=== PATIENT | female | born 1955 | race Caucasian/White ===

== ENCOUNTER 2016-06-28 11:59 | Inpatient (IN) | payer OTHER ==
[2016-06-07 11:40] VITALS: BMI 34.0
--- NOTE | 2016-06-07 12:19 | PAT Medication Instructions ---
Service Date Jun 07, 2016. Current Home Medication List Albuterol (Ventolin), 2 PUFFS INH Q4-6HR PRN Buspirone Hcl (Buspar), 7.5 MG PO BID Cholecalciferol (Vitamin D3), 5,000 TAB PO QAM Levothyroxine Sodium (Levothyroxine Sodium), 1 TAB PO QAM Loratadine (Claritin), 10 MG PO PRN Magnesium Oxide (Mag-Ox), 400 MG PO QAM Meloxicam (Mobic), 7.5 MG PO BID Montelukast (Singulair *), 10 MG PO QAM Multivitamin (Multivitamin), 1 TAB PO QAM Pantoprazole (Protonix), 40 MG PO HS Medication Instructions For Your Scheduled Surgery - Check with surgeon for instructions: Meloxicam (Mobic), 7.5 MG PO BID - Hold the following medications the morning of surgery: Multivitamin (Multivitamin), 1 TAB PO QAM Montelukast (Singulair *), 10 MG PO QAM Magnesium Oxide (Mag-Ox), 400 MG PO QAM Loratadine (Claritin), 10 MG PO PRN Cholecalciferol (Vitamin D3), 5,000 TAB PO QAM - Take the following medications the morning of surgery with a sip of water: Levothyroxine Sodium (Levothyroxine Sodium), 1 TAB PO QAM Buspirone Hcl (Buspar), 7.5 MG PO BID Albuterol (Ventolin), 2 PUFFS INH Q4-6HR PRN (bring with hospital morning of surgery) - Take the following medications as scheduled the night before surgery: Pantoprazole (Protonix), 40 MG PO HS Loratadine (Claritin), 10 MG PO PRN Buspirone Hcl (Buspar), 7.5 MG PO BID Albuterol (Ventolin), 2 PUFFS INH Q4-6HR PRN If you have any questions please call us at [phone] (Denita Dillard PA-C) or [phone] or [phone]
[2016-06-07 12:54] LABS: BASO % 0.8 %; BASO ABS # 0.05 K/uL (0-0.2); COMPLETE YES; EOS % 3.9 %; HEMATOCRIT 41.7 % (37-47); IG% 0.2 %; LYMPH % 39.6 %; LYMPH ABS # 2.62 K/uL (1.2-3.4); MEAN CELL VOLUME 94.8 fL (80-100); MEAN CORPUSCULAR HGB CONC 33.8 g/dl (32-36); MEAN PLATELET VOLUME 9.7 fL (7.4-10.4); MONO % 8.5 %; PLATELET COUNT 289 K/uL (130-400); WHITE BLOOD COUNT 6.61 K/uL (4.8-10.8)
[2016-06-07 12:57] LABS: URINE APPEARANCE CLEAR (CLEAR); URINE BILIRUBIN NEG (NEG); URINE COLOR YELLOW; URINE NITRITE NEG (NEG); URINE PH 6.5 (4.5-7.5); URINE SPECIFIC GRAVITY 1.006 (1.000-1.030); UROBILINOGEN NEG (NEG)
[2016-06-07 12:58] LABS: MANUAL MICROSCOPIC REQUIRED? NO; REVIEW REQ? NO
[2016-06-07 13:06] LABS: PROTHROMBIN TIME (PATIENT) 10.7 SECONDS (9.0-12.0)
--- NOTE | 2016-06-07 13:09 | DIAGNOSTIC IMAGING REPORT ---
TWO VIEW CHEST CLINICAL HISTORY: Preoperative examination. FINDINGS: PA and lateral chest radiographs are compared to study dated 01/26/2011. The cardiomediastinal silhouette is unremarkable. The lungs and pleural spaces are clear. There is no pneumothorax. The skeletal structures are osteopenic. There is moderate S-shaped thoracolumbar scoliosis. Cholecystectomy clips are identified in the right upper quadrant. IMPRESSION: No active disease in the chest. Electronically signed by: Franck Machado M.D. 06/07/2016 1:08 PM Dictated Date/Time: 06/07/2016 1:07 PM
[2016-06-07 13:23] LABS: BUN/CREATININE RATIO 16.7 (10-20); CALCIUM 9.2 mg/dl (8.5-10.1); POTASSIUM 3.5 mmol/L (3.5-5.1)
--- NOTE | 2016-06-27 08:20 | HISTORY & PHYSICAL EXAMINATION ---
DATE OF ADMISSION: 06/28/2016 CHIEF COMPLAINT: Left knee pain. HISTORY OF PRESENT ILLNESS: Ms. Brink is a 61-year-old female with a multiple-year history of pain in her left knee. The patient rates her pain at an 8/10. She has pain with her daily activities. She has limited standing and walking tolerance. Pain is worse with weightbearing. The patient has had injections, home exercises and anti-inflammatories without relief. She has failed conservative treatment and is scheduled for left knee replacement. PAST MEDICAL HISTORY: Asthma, controlled; acid reflux; thyroid disease; and anxiety. She denies heart disease, diabetes or DVT. PAST SURGICAL HISTORY: Microdiskectomy, L4-L5; right total knee replacement; right carpal tunnel; multiple knee arthroscopies; appendectomy with ovarian cyst resection; laparoscopic cholecystectomy; ACL reconstruction on the right; LAVH in 1992; right ACL repair; and left and right bunionectomy with hammertoe repair. SOCIAL HISTORY: The patient denies alcohol or tobacco use. She lives in a 3-elli home. She is and works as an RN. FAMILY HISTORY: Negative for DVT. MEDICATIONS: Levothyroxine 0.5 mcg daily, Mobic 7.5 two tablets daily, Singulair 10 mg daily, BuSpar 7.5 mg b.i.d., Protonix 40 mg daily, Zantac 150 mg daily, Ventolin p.r.n., vitamin D3 at 5000 International Units daily, multivitamin 1 daily, mag 400 mg daily, and Claritin-D p.r.n. ALLERGIES: MORPHINE AND SULFA. REVIEW OF SYSTEMS: See HPI. Ten other systems reviewed, all negative. PHYSICAL EXAMINATION: VITAL SIGNS: Height 5 feet 0 inches, weight 176 pounds, and BMI is 34. GENERAL: This is a well-developed and well-nourished female who is alert and oriented x3. Mood and affect are appropriate. HEENT: Normocephalic and atraumatic. Mucous membranes are moist and intact. NECK: Supple without lymphadenopathy. HEART: Regular rate and rhythm without murmurs, rubs or gallops. LUNGS: Clear to auscultation without wheezes or rhonchi. ABDOMEN: Soft and nontender. Bowel sounds are equal and active. EXTREMITIES: No ecchymosis, redness or warmth. Thigh and calf are soft and nontender. She has neutral alignment. Range of motion is from 0-110 degrees with +3 laxity. She is neurovascularly intact with +5/5 strength. X-RAY EXAMINATION: AP and lateral views show joint space narrowing and osteophyte formation. IMPRESSION: Degenerative joint disease, left knee. PLAN: The patient will be admitted for a left total knee arthroplasty. We will plan on aspirin for DVT prophylaxis. The patient's PCP is Dr. Morgan Cisneros. She will probably do outpatient physical therapy upon discharge.
[~2016-06-28] VITALS: Ht 152.4 cm; Wt 79.9 kg
[2016-06-28] MEDS: TRANEXAMIC ACID INJ 1,000 MG in SODIUM CHLORIDE 0.9% 100ML 100 ML IV SCH ×2 (06:30→14:44)
[~2016-06-28 11:59] MED LIST: ACETAMINOPHEN 500 MG TAB PO SCH; ALBUAER2 INH; BUPIVACAINE 0.25% 30 ML VIAL ONE; BUPIVACAINE 0.5 % 5 MG/1 ML PF 10ML VIAL ONE; BUSP15TA70 PO; CEFAZOLIN 2000 MG/60 ML D5W 60 ML IV SCH; CHOL20007 PO; CLR10 PO; DEXAMETHASONE 4 MG TAB PO SCH; FAMOTIDINE 20 MG TAB PO SCH; GABAPENTIN 300 MG CAP PO SCH; LACTATED RINGER'S 1000ML 1,000 ML IV SCH; LACTATED RINGER'S 1000ML 500 ML IV ONE; LEVO50TA6 PO; MAGN400T6 PO; MELO7.5T5 PO; METOCLOPRAMIDE HCL 10 MG TAB PO SCH; MULT-506 PO; OXYCODONE HCL 10 MG TABCR (OXYCONTIN) PO SCH; PANT40TA PO; POLYMYXIN B SULFATE 100,000 UNITS in NSS 100ML IR SCH; ROPIVACAINE 5MG/ML 30 ML 150 MG, BUPIVACAINE/EPINEPHR 0.5% MPF 30 ML, KETOROLAC TROMETH... INFIL SCH; SNG10 PO; VANCOMYCIN INJ 400 MG in NSS 100ML IR SCH
[2016-06-28 12:33] VITALS: BP 157/77; PULSE 79; TEMP 36.7; O2SAT 98; Ht 152.4 cm; Wt 79.9 kg
[2016-06-28] MEDS ORDERED: MIDAZOLAM HCL 1 MG/ML 2ML VIAL ONE ×3 (13:57→15:35)
[2016-06-28] MEDS ORDERED: LACTATED RINGER'S 1000ML 1,000 ML IV PRN (14:20)
--- NOTE | 2016-06-28 14:24 | History & Physical Bridge Note ---
H&P Re-Evaluation Bridge Note: I have examined the patient, reviewed the History & Physical and in the interval since the performance of the History & Physical I have noted the following changes of clinical significance: No changes noted
[2016-06-28] MEDS ORDERED: ORTHO JOINT ANESTHETIC ONE (14:30)
[2016-06-28] MEDS ORDERED: BUPIVACAINE/EPINEPHRINE 0.25% 1:200,000 30 ML VIAL ONE (14:30)
[2016-06-28] MEDS ORDERED: FENTANYL CITRATE INJ 50 MCG/1 ML 2 ML VIAL IV PRN (14:30)
[2016-06-28] MEDS ORDERED: ONDANSETRON INJ 2 MG/ML 2 ML VIAL IV PRN ×2 (14:30→16:30)
[2016-06-28] MEDS ORDERED: BACITRACIN 50000 UNIT VIAL ONE (14:31)
[2016-06-28] MEDS ORDERED: POVIDONE-IODINE OP SOLN 30 ML BTL ONE (14:31)
[2016-06-28] MEDS ORDERED: FENTANYL CITRATE INJ 50 MCG/1 ML 2 ML VIAL ONE (14:33)
--- NOTE | 2016-06-28 16:28 | [facility] Post Operative Brief Note ---
Immediate Operative Summary Operative Date Jun 28, 2016. Pre-Operative Diagnosis DJD L KNEE Post-Operative Diagnosis SAME Procedure(s) Performed L TKA W PT MATCHED Surgeon [facility] Representative Surgeon(s) CONNIE Estimated Blood Loss 75 Findings DJD Complication(s) None Disposition Recovery Room / PACU
[2016-06-28] MEDS ORDERED: DiphenhydrAMINE HCL 50 MG/ML VIAL IV PRN (16:30)
[2016-06-28] MEDS ORDERED: MAGNESIUM HYDROXIDE SUSP 30 ML UDC PO PRN (16:30)
[2016-06-28] MEDS ORDERED: ZOLPIDEM TARTRATE 5 MG TAB PO PRN (16:30)
[2016-06-28] MEDS ORDERED: LIDOCAINE HCL 2% 2 ML VIAL (20MG/ML) ONE (16:30)
[2016-06-28] MEDS ORDERED: SOD PHOSPHATE/SOD BIPHOSPHATE ENEMA 132 ML BTL PR PRN (16:30)
[2016-06-28] MEDS ORDERED: TRAMADOL HCL 50 MG TAB PO PRN (16:30)
[2016-06-28] MEDS ORDERED: ALUMINUM/MAGNESIUM/SIMETH (MAALOX MAX) 30 ML UDC PO PRN (16:30)
[2016-06-28] MEDS ORDERED: BISACODYL 10 MG SUPP PR PRN (16:30)
[2016-06-28] MEDS ORDERED: PROPOFOL IV EMULSION 10 MG/ML 20 ML VIAL IV ONE (16:30)
[2016-06-28] MEDS ORDERED: PHENYLEPHRINE HCL INJ 10 MG/ML VIAL ONE (16:30)
[2016-06-28] MEDS ORDERED: METOCLOPRAMIDE HCL INJ 5 MG/ML 2 ML VIAL IV PRN (16:30)
--- NOTE | 2016-06-28 17:11 | OPERATIVE REPORT ---
DATE OF OPERATION: 06/28/2016 PREOPERATIVE DIAGNOSIS: Degenerative arthritis, left knee. POSTOPERATIVE DIAGNOSIS: Same. PROCEDURE: Left total knee patient matched implant. SURGEON: Twan Coon MD. SALES AND MARKETING INTERN: ADRIA Maharaj. ANESTHESIA: Spinal. BLOOD LOSS: 75 mL. REPLACEMENT FLUIDS: 1100 mL crystalloid. DRAINS: Hemovac x2. CULTURES: None. COMPLICATIONS: None. COMPONENTS USED: [employer] Knee System: Femur size 3, tibia size 3 x 11, and patella size 29. NOTE: Carlyn Mccullough was present and assisted throughout due to the complicated nature of this case. She helped with preparation and set up, first assisted throughout and personally closed the capsule, subcutaneous and skin layers and applied the postoperative dressing. DESCRIPTION: Following satisfactory spinal, the patient was supine. A tourniquet was placed, but not inflated. The lower extremity was prepared with ChloraPrep and draped sterilely. Following a surgical time-out, a midline incision was made with a trivector approach. The knee showed grade 4 changes, severe in the medial and patellofemoral compartments. The cruciate ligaments were excised. The patient matched femoral block was applied. Femoral distal rotation and resection were set and completed. The 4-in-1 block was used to finish preparation of the femur. The patient matched tibial block was applied. Tibial resection was completed. The patella was freehand cut. Soft tissue balancing was completed and a trial reduction showed good tensioning stability on the collateral ligaments, stable range of motion, and the patella tracked well. The trial components were removed. The capsule was prepared with the orthopedic cocktail and after irrigation, the components were cemented using Simplex G cement. A Betadine soak was performed. When the cement had hardened, the Betadine was irrigated. Two drains were placed. The arthrotomy was closed with a running suture of 0 V-Loc. The subcutaneous tissues were closed with 2-0 Vicryl and the skin with a running subcuticular stitch of 3-0 V-Loc. Dermabond and a dry dressing were applied. The patient was returned to her bed in stable condition. I attest to the content of the Intraoperative Record and any orders documented therein. Any exceptio ns are noted below.
--- NOTE | 2016-06-28 17:16 | DIAGNOSTIC IMAGING REPORT ---
LEFT KNEE 1 OR 2 VIEWS ROUTINE CLINICAL HISTORY: AP/LATERAL IN PACU LEFT KNEE joint replacement COMPARISON: None. DISCUSSION: Status post total left knee replacement. Good contact between prosthetic and underlying bone. Surgical drains in position. There is no evidence for soft tissue swelling. IMPRESSION: Anatomic alignment status post total joint replacement Electronically signed by: Eric Metzger M.D. 06/28/2016 5:15 PM Dictated Date/Time: 06/28/2016 5:15 PM
--- NOTE | 2016-06-28 17:36 | Anesthesiology Progress Note ---
Anesthesia Post Op Note Date & Time Jun 28, 2016 at 17:36 Vital Signs Pain Intensity: 0 Vital Signs Past 12 Hours Date Time Temp Pulse Resp B/P Pulse Ox O2 Delivery O2 Flow Rate FiO2 06/28/16 17:30 36.7 79 20 111/71 97 Nasal Cannula 06/28/16 17:20 81 20 126/66 98 Nasal Cannula 06/28/16 17:10 81 20 117/70 95 Nasal Cannula 06/28/16 17:00 36.6 87 20 109/66 94 Nasal Cannula 06/28/16 12:33 36.7 79 20 157/77 98 Room Air Notes Mental Status: alert / awake / arousable, participated in evaluation Pt Amnestic to Procedure: Yes Nausea / Vomiting: adequately controlled Pain: adequately controlled Airway Patency, RR, SpO2: stable & adequate BP & HR: stable & adequate Hydration State: stable & adequate Neuraxial Anesthesia: was administered, sensory block is resolving Anesthetic Complications: no major complications apparent
[2016-06-28 17:48] VITALS: BP 113/74; PULSE 72; TEMP 36.4; O2SAT 97
[2016-06-28 18:14] VITALS: BP 110/73; PULSE 69; TEMP 36.6; O2SAT 98
[2016-06-28 18:45] VITALS: BP 111/75; PULSE 72; TEMP 36.5; O2SAT 98
[2016-06-28] MEDS: D5W AND 1/2NSS + 20MEQ KCL 1,000 ML IV SCH (18:54)
[2016-06-28] MEDS ORDERED: PNEUMOCOCCAL POLYSACCHARIDES 25 MCG/0.5 ML VIAL/SYR IM. ONE (20:00)
[2016-06-28] MEDS ORDERED: PNEUMOCOCCAL ADMINISTRATION CHARGE ONE (20:00)
[2016-06-28] MEDS: OXYCODONE HCL 10 MG TABCR (OXYCONTIN) PO SCH (20:01)
[2016-06-28] MEDS: SENNA 8.6 MG TAB PO SCH (20:01)
[2016-06-28] MEDS: ASPIRIN 81 MG ECTAB PO SCH (20:01)
[2016-06-28] MEDS: ALBUTEROL HFA 8 GM INHALER INH SCH (20:02)
[2016-06-28] MEDS: BusPIRone 15 MG TAB PO SCH (20:02)
[2016-06-28] MEDS: ACETAMINOPHEN 500 MG TAB PO SCH (20:02)
[2016-06-28 20:50] VITALS: BP 104/69; PULSE 86; TEMP 36.6; O2SAT 98
[2016-06-28] MEDS ORDERED: TRANEXAMIC ACID INJ 1,000 MG in SODIUM CHLORIDE 0.9% 100ML 100 ML IV SCH (22:00)
[2016-06-28 23:07] VITALS: BP 111/75; PULSE 86; TEMP 36.6; O2SAT 96
[2016-06-28] MEDS: CEFAZOLIN IV 2,000 MG in DEXTROSE 5% 50ML 50 ML IV SCH (23:24)
[2016-06-28] MEDS: OXYCODONE HCL IR 5 MG TAB (IMMEDIATE RELEASE) PO PRN (23:25)
[2016-06-29] VITALS (7 sets, daily range): BP systolic 103–129; BP diastolic 62–77; PULSE 72–93; TEMP 36.4–36.9; O2SAT 92–98
[2016-06-29] MEDS: ACETAMINOPHEN 500 MG TAB PO SCH ×3 (04:05→20:29)
[2016-06-29] MEDS: OXYCODONE HCL IR 5 MG TAB (IMMEDIATE RELEASE) PO PRN ×4 (04:36→21:49)
[2016-06-29] MEDS: D5W AND 1/2NSS + 20MEQ KCL 1,000 ML IV SCH ×2 (04:43→13:23)
[2016-06-29] MEDS: LEVOTHYROXINE 50 MCG TAB PO SCH (05:29)
[2016-06-29 05:55] LABS: HEMATOCRIT 35.2 % (37-47); MEAN CELL VOLUME 94.1 fL (80-100); MEAN CORPUSCULAR HEMOGLOBIN 33.2 pg (25-34); MEAN CORPUSCULAR HGB CONC 35.2 g/dl (32-36); MEAN PLATELET VOLUME 9.9 fL (7.4-10.4); PLATELET COUNT 244 K/uL (130-400); RED BLOOD COUNT 3.74 M/uL (4.2-5.4); WHITE BLOOD COUNT 14.69 K/uL (4.8-10.8)
[2016-06-29 06:20] LABS: BUN/CREATININE RATIO 17.2 (10-20); CALCIUM 8.3 mg/dl (8.5-10.1); POTASSIUM 4.2 mmol/L (3.5-5.1)
[2016-06-29] MEDS: ALBUTEROL HFA 8 GM INHALER INH SCH ×4 (07:36→20:00)
[2016-06-29] MEDS: CEFAZOLIN IV 2,000 MG in DEXTROSE 5% 50ML 50 ML IV SCH (07:38)
--- NOTE | 2016-06-29 08:12 | Orthopedic Progress Note ---
Orthopedic Progress Note Date of Service Jun 29, 2016. Subjective Post OP Day: 1 Reports: feeling well, pain controlled w PO medications, Denies: SOB, chest pain , complaints, light headedness, nausea / vomiting Objective calves soft nontender, N/V intact, dressing C/D/I, toes mobile, hemovac drainage (200 LAST SHIFT ) Date Time Temp Pulse Resp B/P Pulse Ox O2 Delivery O2 Flow Rate FiO2 06/29/16 07:39 36.4 79 20 105/70 96 Room Air 06/29/16 07:30 96 Room Air 06/29/16 03:10 36.5 75 16 119/73 92 Room Air 06/28/16 23:25 Room Air 06/28/16 23:07 36.6 86 14 111/75 96 Room Air 06/28/16 20:50 36.6 86 18 104/69 98 Nasal Cannula 4.0 06/28/16 18:45 36.5 72 16 111/75 98 Nasal Cannula 4.0 06/28/16 18:14 36.6 69 16 110/73 98 Nasal Cannula 4.0 06/28/16 17:48 36.4 72 20 113/74 97 Nasal Cannula 4.0 06/28/16 17:30 36.7 79 20 111/71 97 Nasal Cannula 06/28/16 17:20 81 20 126/66 98 Nasal Cannula 06/28/16 17:10 81 20 117/70 95 Nasal Cannula 06/28/16 17:00 36.6 87 20 109/66 94 Nasal Cannula 06/28/16 12:33 36.7 79 20 157/77 98 Room Air Laboratory Results 24 Hours: Test 06/29/16 05:45 Hematocrit 35.2 % Hemoglobin 12.4 g/dL Assessment & Plan Assessment: POD 1 TKA MOD DRAINAGE FROM KNEE Plan: 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
--- NOTE | 2016-06-29 08:33 | Anesthesiology Progress Note ---
Anesthesia Post Op Note Date & Time Jun 29, 2016 at 08:33 Vital Signs Pain Intensity: 5.0 Vital Signs Past 12 Hours Date Time Temp Pulse Resp B/P Pulse Ox O2 Delivery O2 Flow Rate FiO2 06/29/16 07:39 36.4 79 20 105/70 96 Room Air 06/29/16 07:30 96 Room Air 06/29/16 03:10 36.5 75 16 119/73 92 Room Air 06/28/16 23:25 Room Air 06/28/16 23:07 36.6 86 14 111/75 96 Room Air 06/28/16 20:50 36.6 86 18 104/69 98 Nasal Cannula 4.0 Notes Mental Status: alert / awake / arousable, participated in evaluation Pt Amnestic to Procedure: Yes Nausea / Vomiting: adequately controlled Pain: adequately controlled Airway Patency, RR, SpO2: stable & adequate BP & HR: stable & adequate Hydration State: stable & adequate Neuraxial Anesthesia: sensory block resolved Anesthetic Complications: no major complications apparent
[2016-06-29] MEDS: OXYCODONE HCL 10 MG TABCR (OXYCONTIN) PO SCH ×2 (08:38→20:30)
[2016-06-29] MEDS: PANTOprazole SOD 40 MG TAB PO SCH (08:38)
[2016-06-29] MEDS: CHOLECALCIFEROL 1000 INTER.UNIT TAB PO SCH (08:38)
[2016-06-29] MEDS: MONTELUKAST SOD 10 MG TAB PO SCH (08:38)
[2016-06-29] MEDS: MULTIVITAMIN TAB PO SCH (08:39)
[2016-06-29] MEDS: ASPIRIN 81 MG ECTAB PO SCH ×2 (08:39→20:30)
[2016-06-29] MEDS: BusPIRone 15 MG TAB PO SCH ×2 (08:39→20:30)
[2016-06-29] MEDS: MAGNESIUM OXIDE 400 MG TAB PO SCH (08:39)
--- NOTE | 2016-06-29 08:39 | Discharge Instructions ---
Discharge Instructions Date of Service Jun 29, 2016. Admission Reason for Admission: Left Degenerative Arthritis - Leg/Knee Discharge Discharge Diagnosis / Problem: sp left TKA Discharge Goals Goal(s): Decrease discomfort, Improve function, Increase independence Activity Recommendations Activity Limitations: per Instructions/Follow-up section . Instructions / Follow-Up Instructions / Follow-Up ACTIVITY RECOMMENDATIONS: SELF CARE INSTRUCTIONS AFTER TOTAL KNEE REPLACEMENT A. You may need to continue a physical therapy program after discharge from the hospital. There are several options available to you. Your doctor will assist you in selecting the best one for you. 1. An out-patient facility 2 to 3 times a week for therapy or home therapy. 2. Continue working on all exercises taught to you in the hospital. Your goals should be to increase bending of your knee to 90 degrees and beyond and to fully straighten your knee. B. You may progress at your own pace from walking with a walker or crutches to a cane; then to no assistive devices. C. Make walking a part of your daily routine. Be up as much as comfortable with rest periods throughout the day. Rest with leg elevation is very important. Use the ice wrap frequently for the first 3-4 weeks. D. There are no restrictions on activities. You may ride in a car, shop, participate in project management intern and all social activities. E. Wear the long elastic stockings (KATLIN hose) 20 hours a day for 2 weeks after surgery. They can be removed several times a day for laundering and for a bath. F. You may shower, no tub baths until cleared by your doctor. SPECIAL CARE INSTRUCTIONS: VERY IMPORTANT TO READ AND REVIEW A. There are a few signs you need to watch for after you are home. Call [facility] [place] if you notice any of the followin. Increased severe knee pain. Some pain is expected especially when you exercise. 2. Increased swelling in your leg or knee; pain or swelling of the calf muscle in either lower leg. 3. Any fluid drainage from the incision. 4. Shortness of breath or chest pain. B. Please call [facility] at if you have any concerns or questions about your operation or recovery. The doctor or his nurse will return your call promptly. C. You must take antibiotics before dental work, bladder, bowel or other surgery. Your doctor will provide you with a permanent care to carry describing this precaution. IMPORTANT: * REMEMBER TO TAKE ASPIRIN, 81 MG, TWICE DAILY FOR 4 WEEKS UNLESS OTHERWISE DIRECTED. THIS IS YOUR BLOOD THINNER. * HIGH RISK PATIENTS MAY BE PRESCRIBED A STRONGER BLOOD THINNER. THIS WILL BE PROVIDED AT DISCHARGE. * CALL IF INCREASED PAIN, REDNESS, DRAINAGE OR FEVER GREATER THAT 101. * WEAR KATLIN HOSE 20 HOURS PER DAY FOR 2 WEEKS. DERMABOND Prineo- This is a mesh tape dressing that is covered with glue. It should remain in place until the incision is properly healed, usually 10-14 days. This dressing is designed to naturally slough off. You may trim the excess mesh tape as it peels off. Incision may be briefly wet in a shower. Dry immediately by blotting with a clean, dry towel. Do not bath or swim until instructed by your doctor. Do not scratch, rub, or pick at the dressing. Do not apply any topical ointments or lotions until dressing is completely removed and/or instructed by your doctor. There may be a small piece of suture material at one end of your incision. Do not pull or trim this. If it is bothersome or catching on clothing, you may cover it with a band-aid. FOLLOW UP VISIT: If appointment is not already scheduled: Please call [facility] [place] to make a follow-up appointment for 2 weeks after your surgery at . Current Hospital Diet Patient's current hospital diet: Regular Diet Discharge Diet Recommended Diet: Regular Diet Procedures Procedures Performed: Left total knee arthroplasty Pending Studies Studies pending at discharge: no Medical Emergencies . Who to Call and When: Medical Emergencies: If at any time you feel your situation is an emergency, please call 911 immediately. . Non-Emergent Contact Non-Emergency issues call your: Primary Care Provider . "Provider Documentation" section prepared by Carlyn Mccullough. VTE Core Measure Inpt VTE Proph given/why not?: Other Anticoagulation, T.E.Conrad Petersen, SCD's [place] Drug Monitoring Program Search Results: patient reviewed within database, no issues identified
[2016-06-29] MEDS ORDERED: ASPEC81 PO (08:41)
[2016-06-29] MEDS ORDERED: SNK PO (08:41)
[2016-06-29] MEDS ORDERED: RXC5 PO (08:41)
[2016-06-29] MEDS ORDERED: ONDA8TAB6 PO (08:41)
[2016-06-29] MEDS ORDERED: ACET-1138 PO (08:41)
[2016-06-29] MEDS ORDERED: LORATADINE 10 MG TAB PO PRN (09:00)
[2016-06-29] MEDS: SENNA 8.6 MG TAB PO SCH (20:31)
[2016-06-29] MEDS: KETOROLAC TROMETHAMINE 30 MG/ML VIAL IV. PRN (21:49)
[2016-06-29] MEDS ORDERED: NURSING VERBAL MED ORDER ONE (22:00)
[2016-06-30] MEDS ORDERED: COUGH DROP (SUGAR FREE) LOZ 24 LOZ/1 BOX ONE (04:19)
[2016-06-30] MEDS: ACETAMINOPHEN 500 MG TAB PO SCH (04:23)
[2016-06-30] MEDS: OXYCODONE HCL IR 5 MG TAB (IMMEDIATE RELEASE) PO PRN (04:25)
[2016-06-30] MEDS ORDERED: COUGH DROP (SUGAR FREE) LOZ 24 LOZ/1 BOX PO PRN (04:45)
[2016-06-30] MEDS: LEVOTHYROXINE 50 MCG TAB PO SCH (06:02)
[2016-06-30 06:03] VITALS: BP 114/78; PULSE 73; TEMP 36.6; O2SAT 96
[2016-06-30] MEDS: KETOROLAC TROMETHAMINE 30 MG/ML VIAL IV. PRN (06:59)
[2016-06-30] MEDS: ALBUTEROL HFA 8 GM INHALER INH SCH (07:34)
[2016-06-30] MEDS: ASPIRIN 81 MG ECTAB PO SCH (07:36)
[2016-06-30] MEDS: MULTIVITAMIN TAB PO SCH (07:36)
[2016-06-30] MEDS: MONTELUKAST SOD 10 MG TAB PO SCH (07:36)
[2016-06-30] MEDS: PANTOprazole SOD 40 MG TAB PO SCH (07:37)
[2016-06-30] MEDS: CHOLECALCIFEROL 1000 INTER.UNIT TAB PO SCH (07:37)
[2016-06-30] MEDS: BusPIRone 15 MG TAB PO SCH (07:38)
[2016-06-30] MEDS: MAGNESIUM OXIDE 400 MG TAB PO SCH (07:40)
--- NOTE | 2016-06-30 07:44 | DISCHARGE SUMMARY ---
DISCHARGE DIAGNOSIS: Degenerative joint disease left knee. SECONDARY DIAGNOSIS: None. CONSULTS: None. COMPLICATIONS: None. PROCEDURE: The patient underwent a left total knee arthroplasty with Dr. Coon on 06/28/2016. BRIEF HISTORY: Please see previously dictated history and physical. HOSPITAL SUMMARY: The patient was admitted on the above day for the above procedure. Procedure went without complication. Postop day 1, the patient was feeling well without complaints. She denied chest pain or shortness of breath. Vital signs were stable. She was afebrile. Dressing was clean, dry and intact. She was neurovascularly intact. Calves were soft and nontender. Hemoglobin was 12.4. The patient began physical therapy per protocol. She did develop some increased pain later in the afternoon and Toradol did give her some relief however she was not discharged to home. On postop day 2, the patient continued to improve. She had better pain control. Vital signs were stable. She was afebrile. Dressing was clean, dry and intact. She was neurovascularly intact. Calves were soft and nontender. The patient was discharged home later that day in stable condition. For further review please see the chart. Lab, x-ray data and discharge instructions as per chart.
[2016-06-30] MEDS: OXYCODONE HCL 10 MG TABCR (OXYCONTIN) PO SCH (07:45)
[2016-06-30 10:51] VITALS: BP 114/78; PULSE 73; TEMP 36.6; O2SAT 96
[2016-06-30] MEDS ORDERED: CeleBREX 200 MG CAP PO SCH (21:00)
== END 2016-06-30 11:54 | disposition home or self-care (01) | DRG 470 ==
LOC: ENRESERVTM → ENRESERVDT → C.ACU 11:59 → C.3E 16:28
PROVIDERS: ADMIT Orthopaedic Surgery; ATTEND Orthopaedic Surgery
PROC: 0SRD0J9 Replacement of Left Knee Joint with Synthetic Substitute, Cemented, Open Approach (ICD-10-PCS; principal; 2016-06-28 14:00)
DX: M17.12 Unilateral primary osteoarthritis, left knee (principal); J45.909 Unspecified asthma, uncomplicated; K21.9 Gastro-esophageal reflux disease without esophagitis; E07.9 Disorder of thyroid, unspecified; F41.9 Anxiety disorder, unspecified; Z79.899 Other long term (current) drug therapy; Z96.651 Presence of right artificial knee joint